=== PATIENT | female | born 1945 | race Caucasian/White ===

== ENCOUNTER → 2017-09-17 17:17 | Outpatient (CLI) | payer OTHER ==
[~2017-09-17 17:17] MED LIST: DIGOX125 MCG; ELIQUIS2.5 MG; HYDRALAZINE HCL50 MG; TAMBOCOR150 MG
== END | disposition home or self-care (01) ==
LOC: RAD 17:17
DX: M25.561 Pain in right knee (principal); M25.551 Pain in right hip; M25.552 Pain in left hip; M53.3 Sacrococcygeal disorders, not elsewhere classified

== ENCOUNTER → 2020-01-04 09:18 | Outpatient (CLI) | payer OTHER ==
[~2020-01-04 09:18] MED LIST changes: +COZAAR50 MG; +VERAPAMIL ER100 MG
== END | disposition home or self-care (01) ==
LOC: LAB 09:18
PROVIDERS: ATTEND Orthopaedic Surgery
DX: M85.88 Other specified disorders of bone density and structure, other site (principal); E55.9 Vitamin D deficiency, unspecified; E21.2 Other hyperparathyroidism; E88.89 Other specified metabolic disorders; M81.8 Other osteoporosis without current pathological fracture; E56.1 Deficiency of vitamin K

== ENCOUNTER 2020-01-04 10:33 | Emergency (ER) | payer OTHER ==
[~2020-01-04] VITALS: Ht 160 cm; Wt 70.3 kg
[~2020-01-04 10:33] MED LIST changes: -COZAAR50 MG; -VERAPAMIL ER100 MG
[2020-01-04] MEDS ORDERED: COZAAR50 MG (10:40)
[2020-01-04] MEDS ORDERED: VERAPAMIL ER100 MG (10:40)
== END 2020-01-04 16:34 | disposition home or self-care (01) ==
LOC: ER 10:33
DX: R00.2 Palpitations (principal); R06.02 Shortness of breath; Z03.818 Encounter for observation for suspected exposure to other biological agents ruled out

== ENCOUNTER 2020-04-25 07:28 | Outpatient (CLI) | payer OTHER ==
[~2020-04-25 07:28] MED LIST changes: +COZAAR50 MG; +VERAPAMIL ER100 MG
== END 2020-04-25 07:41 | disposition home or self-care (01) ==
LOC: LAB 07:28
PROVIDERS: ATTEND Internal Medicine Hematology & Oncology
DX: M81.0 Age-related osteoporosis without current pathological fracture (principal); I48.20 Chronic atrial fibrillation, unspecified; I10 Essential (primary) hypertension; K29.50 Unspecified chronic gastritis without bleeding; R97.8 Other abnormal tumor markers; R97.0 Elevated carcinoembryonic antigen [CEA]; E06.3 Autoimmune thyroiditis; E55.9 Vitamin D deficiency, unspecified; D51.0 Vitamin B12 deficiency anemia due to intrinsic factor deficiency; D51.1 Vitamin B12 deficiency anemia due to selective vitamin B12 malabsorption with proteinuria; D50.8 Other iron deficiency anemias; R74.02 Elevation of levels of lactic acid dehydrogenase [LDH]; K76.89 Other specified diseases of liver; R79.89 Other specified abnormal findings of blood chemistry

== ENCOUNTER → 2020-11-27 11:35 | Outpatient (CLI) | payer OTHER | END | disposition home or self-care (01) | LOC: LAB 11:35 | PROVIDERS: ATTEND Orthopaedic Surgery | DX: E56.1 Deficiency of vitamin K (principal); E55.9 Vitamin D deficiency, unspecified; M85.89 Other specified disorders of bone density and structure, multiple sites; E21.2 Other hyperparathyroidism; M81.8 Other osteoporosis without current pathological fracture; E03.8 Other specified hypothyroidism; M85.88 Other specified disorders of bone density and structure, other site ==

== ENCOUNTER 2020-11-27 13:38 | Outpatient (CLI) | payer OTHER | END 2020-11-27 13:48 | disposition home or self-care (01) | LOC: NUCLEAR 13:38 | PROVIDERS: ATTEND Orthopaedic Surgery | DX: M81.0 Age-related osteoporosis without current pathological fracture (principal) ==

== ENCOUNTER 2021-02-28 14:22 | Emergency (ER) | payer OTHER ==
[~2021-02-28] VITALS: Ht 160 cm; Wt 78.5 kg
[2021-02-28] MEDS ORDERED: SINGULAIR 10MG10 MG PO (14:41)
[2021-02-28] MEDS ORDERED: LANOXIN125 MCG PO (14:41)
[2021-02-28] MEDS ORDERED: ATACAND16 MG PO (14:41)
[2021-02-28] MEDS ORDERED: DOLOGESIC-DF 51 EACH PO (14:43)
[2021-02-28] MEDS ORDERED: SKELAXIN800 MG PO (14:43)
== END 2021-02-28 21:20 | disposition left against medical advice (07) ==
LOC: ER 14:22
DX: S40.021S Contusion of right upper arm, sequela (principal); S50.01XA Contusion of right elbow, initial encounter; W18.09XS Striking against other object with subsequent fall, sequela

== ENCOUNTER 2021-07-16 17:06 | Emergency (ER) | payer OTHER ==
[~2021-07-16] VITALS: Ht 160 cm; Wt 77.6 kg
[~2021-07-16 17:06] MED LIST changes: +ATACAND16 MG PO; +DOLOGESIC-DF 51 EACH PO; +LANOXIN125 MCG PO; +SINGULAIR 10MG10 MG PO; +SKELAXIN800 MG PO
== END 2021-07-16 21:36 | disposition home or self-care (01) ==
LOC: ER 17:06
DX: S70.01XA Contusion of right hip, initial encounter (principal); S80.11XA Contusion of right lower leg, initial encounter; W18.30XA Fall on same level, unspecified, initial encounter; Y93.9 Activity, unspecified; Y92.019 Unspecified place in single-family (private) house as the place of occurrence of the external cause; Z88.0 Allergy status to penicillin; Z88.8 Allergy status to other drugs, medicaments and biological substances; I10 Essential (primary) hypertension; G47.30 Sleep apnea, unspecified

== ENCOUNTER → 2021-11-12 08:19 | Outpatient (CLI) | payer OTHER | END | disposition home or self-care (01) | LOC: LAB 08:19 | PROVIDERS: ATTEND Orthopaedic Surgery | DX: E83.42 Hypomagnesemia (principal); M81.8 Other osteoporosis without current pathological fracture; E88.9 Metabolic disorder, unspecified; M54.59 Other low back pain; M25.511 Pain in right shoulder; M75.121 Complete rotator cuff tear or rupture of right shoulder, not specified as traumatic ==

== ENCOUNTER 2024-02-12 12:41 | Emergency (ER) | payer OTHER ==
[~2024-02-12] VITALS: Ht 160 cm; Wt 74.8 kg
[2024-02-12 13:28] VITALS: BP 145/83; O2SAT 99
[2024-02-12] MEDS ORDERED: ELIQUIS5 M1 PO (13:32)
[2024-02-12] MEDS ORDERED: FOSAMAX70 MG PO (13:34)
[2024-02-12] MEDS ORDERED: CARDIZEM30 MG PO (13:34)
[2024-02-12] MEDS ORDERED: KETOROLAC TROMETHAMINE 15 MG VIAL IM STA (16:56)
[2024-02-12] MEDS ORDERED: KETOROLAC TROMETHAMINE 60 MG VIAL IM ONE (16:58)
[2024-02-12] MEDS ORDERED: NORFLEX100MG PO (18:34)
[2024-02-12] MEDS ORDERED: ADVIL DUAL ACT1 EACH PO (18:34)
== END 2024-02-12 18:40 | disposition home or self-care (01) ==
LOC: ER 12:43
DX: S13.4XXA Sprain of ligaments of cervical spine, initial encounter (principal); W19.XXXA Unspecified fall, initial encounter; Y93.89 Activity, other specified; Y92.89 Other specified places as the place of occurrence of the external cause; Y99.8 Other external cause status; M25.512 Pain in left shoulder; I10 Essential (primary) hypertension; Z88.0 Allergy status to penicillin; Z88.6 Allergy status to analgesic agent

== ENCOUNTER 2024-02-18 14:52 | Outpatient (CLI) | payer OTHER ==
[~2024-02-18 14:52] MED LIST changes: +ADVIL DUAL ACT1 EACH PO; +CARDIZEM30 MG PO; +ELIQUIS5 M1 PO; +FOSAMAX70 MG PO; +NORFLEX100MG PO
== END 2024-02-18 14:58 | disposition home or self-care (01) ==
LOC: SONOGRAMA 14:52
PROVIDERS: ATTEND Orthopaedic Surgery
DX: M25.512 Pain in left shoulder (principal)

== ENCOUNTER → 2024-04-08 12:03 | Outpatient (CLI) | payer OTHER ==
[2024-04-08 13:14] LABS: ALBUMIN 3.8 gm/dL (3.4-5.0); BILIRUBIN TOTAL 0.58 mg/dL (0.3-1.2); CALCIUM 8.7 mg/dL (8.5-10.1); CREATININE SERUM 0.86 mg/dL (0.55-1.02); GFR 63.49; GLOBULINA 3.2 G/DL (2.4-3.5); MAGNESIUM 2.3 mg/dL (1.8-2.4); POTASSIUM 3.93 mEq/L (3.5-5.1)
== END | disposition home or self-care (01) ==
LOC: LAB 12:03
PROVIDERS: ATTEND Orthopaedic Surgery
DX: E56.1 Deficiency of vitamin K (principal); E55.9 Vitamin D deficiency, unspecified; M85.9 Disorder of bone density and structure, unspecified; E21.3 Hyperparathyroidism, unspecified; E88.89 Other specified metabolic disorders

== ENCOUNTER 2024-04-08 13:16 | Outpatient (CLI) | payer OTHER | END 2024-04-08 13:17 | disposition home or self-care (01) | LOC: NUCLEAR 13:16 | PROVIDERS: ATTEND Orthopaedic Surgery | DX: M81.0 Age-related osteoporosis without current pathological fracture (principal) ==